=== PATIENT | female | born 1970 | race Caucasian/White ===

== ENCOUNTER 2016-06-28 08:50 | Emergency (ER) | payer MEDICARE, OTHER ==
[~2016-06-28 08:50] MED LIST: AMIT100 PO; APRES10B PO; ASAB PO; ATEN25 PO; ATEN50 PO; BACTROINT TOP; CEFAZ1 IM; CEFT5 PO; CRESTOR; CRESTOR20 MG PO; EFFEXXR37 PO; FISH-EPA1000 MG PO; FLAG500TAB PO; FLEX; FLEX PO; FLORASTOR250 MG PO; GLUCPH PO; HALF81 PO; HUMALOG SC; HUMULIN R500 UNIT/1 SQ; IODOSORB TOP; IVVIBRA PO; JANUMET; LANTUS SC; LEVEMIR SC; LIPOFEN150 MG PO; MAGNESIUM 250MG PO; MAGNESIUM PO; NAP500 PO; NEUR300 PO; NEXIUM40 PO; NORCO1 TAB PO; POTASSIUM 595MG PO; PRIN20 PO; PRINZIDE1 TA1 PO; TEARS PURE OPH; TRILIPIX; VANCO1P IV; VICTOZA18 MG/3 ML; VICTOZA18 MG/3 ML SC; VITAMIN D31000 UNIT PO; WELLXL150 PO; ZANAFLEX 4 MG TA4 MG PO; ZANTAC150 MG PO; ZESTORETIC PO; ZOCOR20 PO; ZOSYN375 IV; [UNRECOGNIZED DRUG - OTHER]
[2016-06-28 10:35] LABS: BASOPHILS 0.2 %; BASOPHILS ABSOLUTE 0.02 10/3/uL (0.0-0.16); EOSINOPHILS 1.8 %; EOSINOPHILS ABSOLUTE 0.18 10/3/uL (0.0-0.53); ER CBC TAT 0 Hrs 09 Mins; HEMATOCRIT 31.4 % (36.0-48.0); HEMOGLOBIN 9.9 g/dL (12.0-16.0); IMMATURE GRANULOCYTES 0.4 %; IMMATURE GRANULOCYTES ABSOLUTE 0.04 10/3/uL (0.0-0.11); LYMPHOCYTES 32.4 %; LYMPHOCYTES ABSOLUTE 3.26 10/3/uL (0.67-4.30); MEAN CORPUS HGB CONC 31.5 g/dL (32.0-36.0); MEAN CORPUSCULAR HEMOGLOB 26.8 pg (26.0-34.0); MEAN CORPUSCULAR VOLUME 84.9 fL (80-100); MEAN PLATELET VOLUME 9.9 fL (9.2-13.0); MONOCYTES 5.8 %; MONOCYTES ABSOLUTE 0.58 10/3/uL (0.21-1.20); NEUTROPHILS 59.4 %; NEUTROPHILS ABSOLUTE 5.97 10/3/uL (2.02-8.40); PLATELET COUNT 256 10/3/uL (150-400); RBC DISTRIBUTION WIDTH 14.6 % (12.0-16.0); WHITE BLOOD CELLS 10.1 10/3/uL (4.5-10.5)
[2016-06-28 10:36] LABS: WBC (NOT ORDERED) (RFLEX) 0 (0-5)
[2016-06-28 10:36] LABS: MANUAL DIFF NO %
[2016-06-28 10:45] LABS: INTERNATIONAL NORMAL RATI 1.1 UNITS (-); PARTIAL THROMBO TIME 26.4 SEC (22.5-37.2); PROTIME (NOT ORD) 13.8 SEC (12.0-14.5)
[2016-06-28 10:52] LABS: ASCORBIC ACID (UR NOT ORDER) 20 (NEG); BILIRUBIN, URINE NEGATIVE (NEG); ER URINALYSIS TAT 0 Hrs 16 Mins; KETONE, URINE NEGATIVE (NEG); LEUKOCYTE ESTERASE(NOT OR NEG (NEG); NITRITE (URINE) NEG (NEG)
[2016-06-28 10:53] LABS: A/G RATIO 0.7 (0.7-1.9); ALKALINE PHOSPHATASE 86 U/L (45-117); BUN (BLOOD UREA NITROGEN) 21 MG/DL (6-23); CALCIUM, SERUM 8.6 MG/DL (8.5-10.4); CHEST PAIN PROFILE TAT 0 Hrs 27 Mins; CHLORIDE, SERUM 111 MMOL/L (96-112); CO2 (CARBON DIOXIDE) 23 MMOL/L (24-34); CREATININE 0.87 MG/DL (0.55-1.02); GFR AFRICAN AMERICAN 94 ML/MIN (>=60); GFR NON AFRICAN AMERICAN 81 ML/MIN (>=60); GLOBULIN 4.1 G/DL (2.5-4.1); GLUCOSE, SERUM 65 MG/DL (60-99); POTASSIUM, SERUM 4.2 MMOL/L (3.5-5.3); SGOT(AST) 5 U/L (5-40); SGPT(ALT) 20 U/L (5-65); SODIUM, SERUM 144 MMOL/L (135-148); TOTAL BILIRUBIN 0.2 MG/DL (0-1.2); TOTAL PROTEIN 7.1 G/DL (6.0-8.5); TROPONIN I <0.02 NG/ML (<0.05)
[2016-10-07] MEDS ORDERED: MONODOX100 MG PO (13:29)
[2016-10-07] MEDS ORDERED: ENDOCET1 TA3 PO (13:30)
[2016-10-07] MEDS ORDERED: VICTOZA18 MG/3 ML SC (13:33)
[2016-10-07] MEDS ORDERED: DIL4TAB PO (13:34)
[2016-10-07] MEDS ORDERED: LIDOCAINE 5% TOP (13:37)
[2016-10-11] MEDS ORDERED: VICTOZA18 MG/3 ML SC (13:01)
[2016-10-11] MEDS ORDERED: PRINZIDE1 TA1 PO (13:02)
[2016-10-11] MEDS ORDERED: HUMULIN R1 ML SC (13:02)
[2016-10-11] MEDS ORDERED: GLUCPH PO (13:03)
[2016-10-11] MEDS ORDERED: FISH-EPA1000 MG PO (13:08)
[2016-10-11] MEDS ORDERED: ZOCOR20 PO (13:08)
[2016-10-11] MEDS ORDERED: ZANAFLEX 4 MG TA4 MG PO (13:09)
[2016-10-11] MEDS ORDERED: MAG OXIDE250 MG PO (13:10)
[2016-10-11] MEDS ORDERED: EFFEXXR37 PO (13:10)
[2016-10-11] MEDS ORDERED: NEUR300 PO (13:11)
[2016-10-11] MEDS ORDERED: DIL4TAB PO (13:11)
[2016-10-11] MEDS ORDERED: OXYCOD PO (13:12)
[2016-10-11] MEDS ORDERED: LIDOCAINE-PRILOCAINE TOP (13:19)
[2016-10-12] MEDS ORDERED: HALF81 PO (15:38)
[2016-10-12] MEDS ORDERED: VITAMIN D1000 UNI1 PO (15:38)
[2016-10-12] MEDS ORDERED: ATEN25 PO (15:38)
[2016-10-12] MEDS ORDERED: DORYX100 MG PO (15:39)
[2016-12-26] MEDS ORDERED: EFFEXXR37 PO (19:04)
[2016-12-26] MEDS ORDERED: PRINZIDE1 TA1 PO (19:04)
[2016-12-26] MEDS ORDERED: ZOCOR20 PO (19:04)
[2016-12-26] MEDS ORDERED: ATEN25 PO (19:05)
[2016-12-26] MEDS ORDERED: ZANAFLEX 4 MG TA4 MG PO (19:05)
[2016-12-26] MEDS ORDERED: MAGNESIUM OTC PO (19:06)
[2016-12-26] MEDS ORDERED: OXYCOD PO (19:06)
[2016-12-26] MEDS ORDERED: NEUR300 PO (19:06)
[2016-12-26] MEDS ORDERED: GLUCPH PO (19:06)
[2016-12-26] MEDS ORDERED: HALF81 PO (19:07)
[2016-12-26] MEDS ORDERED: VITAMIN D1000 UNI1 PO (19:07)
[2016-12-26] MEDS ORDERED: FISH-EPA1000 MG PO (19:07)
[2016-12-26] MEDS ORDERED: VICTOZA18 MG/3 ML SC (19:07)
[2016-12-26] MEDS ORDERED: ICY HOT TOP (19:08)
[2016-12-26] MEDS ORDERED: HUMULIN R500 UNIT/1 SC ×2 (19:12)
[2016-12-30] MEDS ORDERED: ELIQUIS 5 MG TAB5 MG PO (10:32)
[2016-12-30] MEDS ORDERED: PRIN10 PO (10:34)
[2016-12-30] MEDS ORDERED: CEFT2 PO (10:35)
== END 2016-06-28 12:34 | disposition home or self-care (01) ==
LOC: ER 08:50
PROVIDERS: Physician Assistant
DX: M54.89 Other dorsalgia (principal); I10 Essential (primary) hypertension; E11.9 Type 2 diabetes mellitus without complications; Z88.5 Allergy status to narcotic agent; Z88.8 Allergy status to other drugs, medicaments and biological substances; Z79.4 Long term (current) use of insulin; Z79.82 Long term (current) use of aspirin; Z79.899 Other long term (current) drug therapy
CPT/HCPCS: 71010; 73620-LT; 80048; 80053; 81001; 83735; 84484; 85025; 85610; 85730; 93005; 99285